=== PATIENT | female | born 1965 | race Caucasian/White ===

== ENCOUNTER 2018-03-08 09:18 | Emergency (ER) | payer BC ==
[2018-03-08 09:52] VITALS: BP 163/80
[2018-03-08 11:38] LABS: ANION GAP 16.3; CHLORIDE,CL 98 mmol/L (101-111); SODIUM,NA 136 mmol/L (135-145)
--- NOTE | 2018-03-08 12:43 | EDM.PDOC ---
ED HPI GENERAL MEDICAL PROBLEM - General Chief Complaint: Respiratory Problem Stated Complaint: SENT BY LUNG Time Seen by Provider: 03/08/18 12:00 Source of Information: Reports: Patient History Limitations: Reports: No Limitations - History of Present Illness INITIAL COMMENTS - FREE TEXT/NARRATIVE: the patient comes emergency Department today with complaints of pain in her chest. She has had quite a bit ofchest surgery in the past at [facility]. She has been doctoring with her furnace hand recently due to some fleeting sharp shooting stabbing chest pain in the left posterior. She saw her primary care last weekat a normal chest x-ray and was placed on Levaquin. She continues to have this intermittent sharp shooting stabbing left-sided posterior chest pain. No cough no shortness of breath. No fever no chills. No palpitations. No weakness dizziness lightheadedness. She was sent to the emergency department by her furnace hand to get a CT scan for PE.she is not a smoker. She is not on any hormones. She has not had any recent surgery. No recent sedentary lifestyle long trips in a car or plane. Left Chest Pain Score (Numeric/FACES): 2 - Related Data Allergies Allergy/AdvReac Type Severity Reaction Status Date / Time fluticasone furoate AdvReac Cough Verified 03/08/18 09:38 [From Breo Ellipta] polyethylene glycol AdvReac Nausea and Verified 03/08/18 09:38 [From Golytely] Vomiting polyethylene glycol 3350 AdvReac Nausea and Verified 03/08/18 09:38 [From Golytely] Vomiting potassium chloride AdvReac Nausea and Verified 03/08/18 09:38 [From Golytely] Vomiting sodium [From Golytely] AdvReac Nausea and Verified 03/08/18 09:38 Vomiting sodium bicarbonate AdvReac Nausea and Verified 03/08/18 09:38 [From Golytely] Vomiting sodium chloride AdvReac Nausea and Verified 03/08/18 09:38 [From Golytely] Vomiting sodium sulfate AdvReac Nausea and Verified 03/08/18 09:38 [From Golytely] Vomiting vilanterol AdvReac Cough Verified 03/08/18 09:38 [From Breo Ellipta] Home Meds: Home Meds Fluticasone/Salmeterol [Advair 250-50 Diskus] 1 puff INH BID 01/10/18 [History] Levothyroxine [Synthroid] 100 mcg PO DAILY 01/10/18 [History] Tiotropium [place] [Spiriva Respimat] 1 puff INH BID 01/10/18 [History] hydroCHLOROthiazide [Hydrochlorothiazide] 25 mg PO DAILY 01/10/18 [History] traMADol HCl [Tramadol HCl] 25 mg PO DAILY PRN 01/10/18 [History] Acetaminophen [Tylenol Extra Strength] 500 mg PO Q4HR PRN 03/08/18 [History] Fexofenadine HCl [Sharon Allergy] 60 mg PO DAILY 03/08/18 [History] Fluticasone Propionate [Flonase Allergy Relief] 2 spray YOLIS DAILY 03/08/18 [ History] Sodium Chloride [Saline Nasal [place]] 1 spray YOLIS DAILY 03/08/18 [History] Past Medical History Other HEENT History: wear glasses Cardiovascular History: Reports: Hypertension Respiratory History: Reports: COPD, Other (See Below) Other Respiratory History: emphysema Genitourinary History: Reports: Other (See Below) Other Genitourinary History: endometriosis 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 Breast Ca in April had radiation and is in remission - Infectious Disease History Infectious Disease History: Reports: Chicken Pox, Mumps - Past Surgical History Other Cardiovascular Surgeries/Procedures: antibiotics at dental procedures Respiratory Surgical History: Reports: Lung Resection, Thoracotomy, Other (See Below) Other Respiratory Surgeries/Procedures: pneumothorax Female Surgical History: Reports: Endometrial Ablation, Oophorectomy Endocrine Surgical History: Reports: Thyroidectomy, Other (See Below) Other Endocrine Surgeries/Procedures: partial thyroidectomy Oncologic Surgical History: Reports: Lumpectomy Social & Family History - Family History Family Medical History: Noncontributory - Tobacco Use Smoking Status *Q: Former Smoker Used Tobacco, but Quit: Yes Month/Year Tobacco Last Used: 2003 - Caffeine Use Caffeine Use: Reports: Coffee - Recreational Drug Use Recreational Drug Use: No ED ROS GENERAL - Review of Systems Review Of Systems: ROS reveals no pertinent complaints other than HPI. ED EXAM, GENERAL - Physical Exam Exam: See Below Exam Limited By: No Limitations General Appearance: Alert, WD/WN, No Apparent Distress Head: Atraumatic, Normocephalic Neck: Normal Inspection, Supple, Non-Tender Respiratory/Chest: No Respiratory Distress, Lungs Clear, Normal Breath Sounds, No Accessory Muscle Use, Chest Non-Tender Cardiovascular: Normal Peripheral Pulses, Regular Rate, Rhythm, No Edema GI/Abdominal: Normal Bowel Sounds, Soft, Non-Tender Back Exam: Normal Inspection, Full Range of Motion, Other (o bruising swelling ecchymosis bony deformity subcutaneous emphysema or any other signs of trauma to the anterior posterior thorax.). No: CVA Tenderness (L), CVA Tenderness (R) Extremities: Normal Inspection, Normal Range of Motion, No Pedal Edema, Normal Capillary Refill Neurological: Alert, Oriented, Normal Cognition, No Motor/Sensory Deficits Psychiatric: Normal Affect, Normal Mood Skin Exam: Warm, Dry, Intact, Normal Color, No Rash Lymphatic: No Adenopathy EKG INTERPRETATION EKG Date: 03/08/18 Time: 12:06 Rhythm: NSR Rate (Beats/Min): 82 [place]: Normal P-Wave: Present QRS: Normal ST-T: Normal QT: Normal Course - Vital Signs Last Recorded V/S: Last Vital Signs Temp 36.7 C 03/08/18 09:44 Pulse 75 03/08/18 09:44 Resp 18 03/08/18 09:44 BP 163/80 H 03/08/18 09:44 Pulse Ox 99 03/08/18 09:44 - Orders/Labs/Meds Labs: Laboratory Tests 03/08/18 03/08/18 03/08/18 Range/Units 11:12 11:12 11:12 WBC 7.2 (5.0-10.0) 10^3/uL RBC 5.39 (4.2-5.4) 10^6/uL Hgb 15.6 (12.0-16.0) g/dL Hct 45.7 (37.0-47.0) % MCV 84.8 (80-100) fL MCH 28.9 (27.0-34.0) pg MCHC 34.1 (33.0-35.0) g/dL Plt Count 330 (150-450) 10^3/uL Neut % (Auto) 75.5 H (42.2-75.2) % Lymph % (Auto) 18.1 L (20.5-50.1) % [place] % (Auto) 5.4 (2-8) % Eos % (Auto) 0.6 L (1.0-3.0) % Baso % (Auto) 0.4 (0.0-1.0) % PT (9.0-12.0) SEC INR (0.9-1.2) D-Dimer, Quantitative < 100 (0-400) ng/mL Sodium 136 (135-145) mmol/L Potassium 3.3 L (3.6-5.0) mmol/L Chloride 98 L (101-111) mmol/L Carbon Dioxide 25.0 (21.0-31.0) mmol/L Anion Gap 16.3 BUN 11 (7-18) mg/dL Creatinine 0.8 (0.6-1.3) mg/dL Est Cr Clr Drug Dosing 66.50 mL/min Estimated GFR (MDRD) > 60 BUN/Creatinine Ratio 13.75 Glucose 99 (74-105) mg/dL Calcium 9.7 (8.4-10.2) mg/dl Total Bilirubin 0.9 (0.2-1.0) mg/dL AST 45 H (10-42) IU/L ALT 54 (10-60) IU/L Alkaline Phosphatase 130 H (42-121) IU/L Total Protein 7.9 (6.7-8.2) g/dl Albumin 4.5 (3.2-5.5) g/dl Globulin 3.4 Albumin/Globulin Ratio 1.32 Urine Color (YELLOW) Urine Appearance (CLEAR) Urine pH (5.0-9.0) Ur Specific [place] (1.005-1.030) Urine Protein (NEGATIVE) Urine Glucose (UA) (NEGATIVE) Urine Ketones (NEGATIVE) Urine Occult Blood (NEGATIVE) Urine Nitrite (NEGATIVE) Urine Bilirubin (NEGATIVE) Urine Urobilinogen (0.2-1.0) mg/dL Ur Leukocyte Esterase (NEGATIVE) Urine RBC /HPF Urine WBC (0-5/HPF) /HPF Ur Epithelial Cells /HPF Urine Bacteria (0-FEW/HPF) /HPF Urine Mucus /LPF 03/08/18 03/08/18 Range/Units 11:12 12:33 WBC (5.0-10.0) 10^3/uL RBC (4.2-5.4) 10^6/uL Hgb (12.0-16.0) g/dL Hct (37.0-47.0) % MCV (80-100) fL MCH (27.0-34.0) pg MCHC (33.0-35.0) g/dL Plt Count (150-450) 10^3/uL Neut % (Auto) (42.2-75.2) % Lymph % (Auto) (20.5-50.1) % [place] % (Auto) (2-8) % Eos % (Auto) (1.0-3.0) % Baso % (Auto) (0.0-1.0) % PT 9.4 (9.0-12.0) SEC INR 0.9 (0.9-1.2) D-Dimer, Quantitative (0-400) ng/mL Sodium (135-145) mmol/L Potassium (3.6-5.0) mmol/L Chloride (101-111) mmol/L Carbon Dioxide (21.0-31.0) mmol/L Anion Gap BUN (7-18) mg/dL Creatinine (0.6-1.3) mg/dL Est Cr Clr Drug Dosing mL/min Estimated GFR (MDRD) BUN/Creatinine Ratio Glucose (74-105) mg/dL Calcium (8.4-10.2) mg/dl Total Bilirubin (0.2-1.0) mg/dL AST (10-42) IU/L ALT (10-60) IU/L Alkaline Phosphatase (42-121) IU/L Total Protein (6.7-8.2) g/dl Albumin (3.2-5.5) g/dl Globulin Albumin/Globulin Ratio Urine Color Yellow (YELLOW) Urine Appearance Clear (CLEAR) Urine pH 7.0 (5.0-9.0) Ur Specific [place] 1.020 (1.005-1.030) Urine Protein Negative (NEGATIVE) Urine Glucose (UA) Negative (NEGATIVE) Urine Ketones 15 H (NEGATIVE) Urine Occult Blood Negative (NEGATIVE) Urine Nitrite Negative (NEGATIVE) Urine Bilirubin Negative (NEGATIVE) Urine Urobilinogen 0.2 (0.2-1.0) mg/dL Ur Leukocyte Esterase Negative (NEGATIVE) Urine RBC 0-5 /HPF Urine WBC 0-5 (0-5/HPF) /HPF Ur Epithelial Cells Rare /HPF Urine Bacteria Few (0-FEW/HPF) /HPF Urine Mucus Rare /LPF - Radiology Interpretation Free Text/Narrative:: CXR negative per radiology. - Re-Assessments/Exams Free Text/Narrative Re-Assessment/Exam: 03/08/18 he patient is clearly not in extremis. There is no concerning physical findings at [facility]. Her d-dimer is negative. Her EKG and labs are otherwise negative. She really does not have much for risk factors of pulmonary embolism other than multiple surgeries but nothing recently. She is not tachycardic she is not dyspneic she is not hypoxic. With the d-dimer being negative as well as everything else we will discharge her home with symptomatic management at this time. She was comfortable with this plan and her questions were entered Departure - Departure Time of Disposition: 12:40 Disposition: Home, Self-Care 01 Clinical Impression: Chest wall pain - Discharge Information Instructions: Chest Wall Pain, [id number], Nonspecific Chest Pain, Easy-to- Read Referrals: Cresencio Smith MD [Primary Care Provider] - Forms: ED Department Discharge Additional Instructions: Tylenol and or Ibuprofen as needed for pain. Follow up with your furnace hand by phone today. Continue previous therapies. Return to the ED if new or worsening symptoms. - Assessment/Plan Assessment:: chest wall pain. Plan: Tylenol and or Ibuprofen as needed for pain. Follow up with your furnace hand by phone today. Continue previous therapies. Return to the ED if new or worsening symptoms.
--- NOTE | 2018-03-08 13:22 | CR ---
Clinical history: A 52-year-old female with shortness of breath. Interpretation: Platelike middle lobe atelectasis. Generalized air trapping. Normal cardiac silhouette without cephalization of vascular flow, alveolar edema or dependent pleural fluid accumulation. No new lobar pneumonia or other atelectasis/collapse however subtle retrosternal nodular density appreciated on lateral film only worrisome (especially if "smoker") and suggest unenhanced CT exam chest. No other discrete lung nodule or mass lesion, hilar lymphadenopathy or malignant effusions. No free subdiaphragmatic air or pneumothorax. CONCLUSION: Air trapping but no peribronchial "cuffing" or focal lobar pneumonia. No heart failure. Note: Subtle retrosternal nodular density.
== END 2018-03-08 12:49 | disposition home or self-care (01) ==
LOC: DL.ED 09:18
DX: R07.89 Other chest pain (principal); I10 Essential (primary) hypertension; J44.9 Chronic obstructive pulmonary disease, unspecified; Z88.8 Allergy status to other drugs, medicaments and biological substances; Z79.899 Other long term (current) drug therapy; Z87.891 Personal history of nicotine dependence
CPT/HCPCS: 36415; 71046; 80053; 81001; 85025; 85379; 85610; 93005; 99284

== ENCOUNTER 2018-08-12 20:09 | Emergency (ER) | payer BC ==
--- NOTE | 2018-08-12 20:33 | EDM.PDOC ---
ED HPI GENERAL MEDICAL PROBLEM - General Stated Complaint: RIGHT FOOT HAS PAIN [id number] Time Seen by Provider: 08/12/18 20:29 Source of Information: Reports: Patient History Limitations: Reports: No Limitations - History of Present Illness INITIAL COMMENTS - FREE TEXT/NARRATIVE: sudden onset redness and pain over right toes Tuesday, denies trauma but been walking alot, denies gout. feels better wiht shoes on, Right Foot Pain Score (Numeric/FACES): 3 - Related Data Allergies Allergy/AdvReac Type Severity Reaction Status Date / Time fluticasone furoate AdvReac Cough Verified 03/08/18 09:38 [From Breo Ellipta] polyethylene glycol AdvReac Nausea and Verified 03/08/18 09:38 [From Golytely] Vomiting polyethylene glycol 3350 AdvReac Nausea and Verified 03/08/18 09:38 [From Golytely] Vomiting potassium chloride AdvReac Nausea and Verified 03/08/18 09:38 [From Golytely] Vomiting sodium [From Golytely] AdvReac Nausea and Verified 03/08/18 09:38 Vomiting sodium bicarbonate AdvReac Nausea and Verified 03/08/18 09:38 [From Golytely] Vomiting sodium chloride AdvReac Nausea and Verified 03/08/18 09:38 [From Golytely] Vomiting sodium sulfate AdvReac Nausea and Verified 03/08/18 09:38 [From Golytely] Vomiting vilanterol AdvReac Cough Verified 03/08/18 09:38 [From Breo Ellipta] Home Meds: Home Meds Fluticasone/Salmeterol [Advair 250-50 Diskus] 1 puff INH BID 01/10/18 [History] Levothyroxine [Synthroid] 100 mcg PO DAILY 01/10/18 [History] Tiotropium [place] [Spiriva Respimat] 1 puff INH BID 01/10/18 [History] hydroCHLOROthiazide [Hydrochlorothiazide] 25 mg PO DAILY 01/10/18 [History] traMADol HCl [Tramadol HCl] 25 mg PO DAILY PRN 01/10/18 [History] Acetaminophen [Tylenol Extra Strength] 500 mg PO Q4HR PRN 03/08/18 [History] Fexofenadine HCl [Sharon Allergy] 60 mg PO DAILY 03/08/18 [History] Fluticasone Propionate [Flonase Allergy Relief] 2 spray YOLIS DAILY 03/08/18 [ History] Sodium Chloride [Saline Nasal [place]] 1 spray YOLIS DAILY 03/08/18 [History] Past Medical History Other HEENT History: wear glasses Cardiovascular History: Reports: Hypertension Respiratory History: Reports: COPD, Other (See Below) Other Respiratory History: emphysema Genitourinary History: Reports: Other (See Below) Other Genitourinary History: 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 Breast Ca in April had radiation and is in remission - Infectious Disease History Infectious Disease History: Reports: Chicken Pox, Mumps - Past Surgical History Other Cardiovascular Surgeries/Procedures: antibiotics at dental procedures Respiratory Surgical History: Reports: Lung Resection, Thoracotomy, Other (See Below) Other Respiratory Surgeries/Procedures: pneumothorax Female Surgical History: Reports: Endometrial Ablation, Oophorectomy Endocrine Surgical History: Reports: Thyroidectomy, Other (See Below) Other Endocrine Surgeries/Procedures: partial thyroidectomy Oncologic Surgical History: Reports: Lumpectomy Social & Family History - Family History Family Medical History: Noncontributory - Caffeine Use Caffeine Use: Reports: Coffee Review of Systems - Review of Systems Review Of Systems: ROS reveals no pertinent complaints other than HPI. ED EXAM, GENERAL - Physical Exam Exam: See Below Exam Limited By: No Limitations General Appearance: Alert, WD/WN, Mild Distress, Other (discomfort) Ears: Hearing Grossly Normal Throat/Mouth: Normal Voice, No Airway Compromise Head: Atraumatic Neck: Non-Tender, Full Range of Motion Respiratory/Chest: No Respiratory Distress Cardiovascular: Regular Rate, Rhythm GI/Abdominal: Soft, Non-Tender Extremities: Other (right foot dorsum erythematous mild swelling, NV nwl, gait limited to discomfort) Neurological: Alert, Oriented, Normal Cognition, No Motor/Sensory Deficits Psychiatric: Flat Affect Skin Exam: Warm, Dry, Normal Color Lymphatic: No Adenopathy Course - Vital Signs Last Recorded V/S: Last Vital Signs Temp 37.3 C 08/12/18 20:33 Pulse 84 08/12/18 20:33 Resp 14 08/12/18 20:33 BP 116/78 08/12/18 20:33 Pulse Ox 95 08/12/18 20:33 - Orders/Labs/Meds Labs: Laboratory Tests 08/12/18 08/12/18 Range/Units 20:42 20:42 WBC 6.5 (5.0-10.0) 10^3/uL RBC 5.17 (4.2-5.4) 10^6/uL Hgb 14.9 (12.0-16.0) g/dL Hct 44.1 (37.0-47.0) % MCV 85.3 (80-100) fL MCH 28.8 (27.0-34.0) pg MCHC 33.8 (33.0-35.0) g/dL Plt Count 281 (150-450) 10^3/uL Neut % (Auto) 53.6 (42.2-75.2) % Lymph % (Auto) 35.5 (20.5-50.1) % [place] % (Auto) 8.6 H (2-8) % Eos % (Auto) 1.8 (1.0-3.0) % Baso % (Auto) 0.5 (0.0-1.0) % Sodium 138 (135-145) mmol/L Potassium 3.4 L (3.6-5.0) mmol/L Chloride 103 (101-111) mmol/L Carbon Dioxide 26.0 (21.0-31.0) mmol/L Anion Gap 12.4 BUN 12 (7-18) mg/dL Creatinine 0.8 (0.6-1.3) mg/dL Est Cr Clr Drug Dosing 65.73 mL/min Estimated GFR (MDRD) > 60 BUN/Creatinine Ratio 15.00 Glucose 95 (74-105) mg/dL Uric Acid 4.7 (2.6-7.2) mg/dL Calcium 9.4 (8.4-10.2) mg/dl Total Bilirubin 0.7 (0.2-1.0) mg/dL AST 25 (10-42) IU/L ALT 22 (10-60) IU/L Alkaline Phosphatase 106 (42-121) IU/L Total Protein 7.0 (6.7-8.2) g/dl Albumin 4.2 (3.2-5.5) g/dl Globulin 2.8 Albumin/Globulin Ratio 1.50 - Re-Assessments/Exams Free Text/Narrative Re-Assessment/Exam: 08/12/18 21:39 results discussed wiht pt who prefers taking advil over IM toradol. Departure - Departure Time of Disposition: 21:39 Disposition: Home, Self-Care 01 Condition: Good Clinical Impression: Tendonitis of ankle or foot - Discharge Information Instructions: Tendinitis, [id number] Forms: ED Department Discharge Additional Instructions: 1) elevate leg as much as possible next 48 hours 2) try ice or heat to sore area 3) continue advil as needed for pain 4) recheck if there is any change or concern
[2018-08-12 20:37] VITALS: BP 116/78
[2018-08-12 21:08] LABS: ANION GAP 12.4; CHLORIDE,CL 103 mmol/L (101-111); SODIUM,NA 138 mmol/L (135-145)
== END 2018-08-12 21:44 | disposition home or self-care (01) ==
LOC: DL.ED 20:09
DX: M77.9 Enthesopathy, unspecified (principal); I10 Essential (primary) hypertension; J44.9 Chronic obstructive pulmonary disease, unspecified; Z88.8 Allergy status to other drugs, medicaments and biological substances; Z79.899 Other long term (current) drug therapy
CPT/HCPCS: 36415; 73620-RT; 80053; 84550; 85025; 99283-25